=== PATIENT | female | born 2000 | race African-American/Black ===

== ENCOUNTER 2020-05-24 08:31 | Outpatient (CLI) | payer OTHER ==
[~2020-05-24] VITALS: Ht 162.6 cm; Wt 108.9 kg
[2020-05-24 08:52] VITALS: BP 122/69
[2020-05-24] MEDS ORDERED: MULTTAB20 PO (08:59)
[2020-05-24] MEDS ORDERED: GNP250TA9 PO (09:01)
[2020-05-24] MEDS ORDERED: ACET-907 PO (09:01)
[2020-05-24] MEDS ORDERED: COLA100C5 PO (09:01)
[2020-05-24] MEDS ORDERED: SILVER NITRATE APPLICATOR TOP ONE (09:30)
--- NOTE | 2020-05-24 09:41 | IPNPDOC ---
Obstetrical Progress Note Date of Service May 24, 2020 Subjective 21 yo G1 @ 31 +0 by LMP who presents with vaginal bleeding after intercourse this morning. she also notes supropupic pain. reports after they had intercourse she noted some blood on the sheets and the had blood on himself. she reports her US wa normal without previa. baby is moving as usual and she denies any LOF or Contractions. she denies any other concerns. Assessment Heart Rate (FHR): 150 Variability: Moderate Accelerations: Positive Heart Rate Tracing: Other (appropriate for gestational age) Tocometer Contractions: No Sterile Vaginal Examination Dilation: None Assessment and Plan Status: Reassuring (21 yo G1 @ 31 +0 by LMP who presents with vaginal bleeding after intercourse this morning found to have ectropion. oozing noted from te ectropion bed and hemostasis obtained with pressure. will also obtaina urinalysis, Culture for suprapubic pain and patient has sickle cell trait. given strict return precautions. f/u with JOSE as previously scheduled.) EVITA ROGERS MD May 24, 2020 09:41
== END 2020-05-24 10:14 | disposition home or self-care (01) ==
LOC: M LDO 08:31
PROVIDERS: ATTEND Obstetrics & Gynecology
DX: O26.853 Spotting complicating pregnancy, third trimester (principal); Z3A.31 31 weeks gestation of pregnancy
CPT/HCPCS: 59025; 81001; G0378; G0463

== ENCOUNTER 2020-07-05 23:08 | Outpatient (CLI) | payer OTHER ==
[~2020-07-05] VITALS: Ht 162.6 cm; Wt 114.3 kg
[~2020-07-05 23:08] MED LIST: ACET-907 PO; COLA100C5 PO; GNP250TA9 PO; MULTTAB20 PO
[2020-07-05 23:38] VITALS: BP 129/58
[2020-07-06 00:20] VITALS: BP 131/73
--- NOTE | 2020-07-06 00:41 | IPNPDOC ---
Text Note Date of Service The patient was seen on 07/06/20. NOTE 20 yo LMP 10/20/19 EDC 07/26/2020 AT 36.3 WEEKS HAS ISSUES OF PELVIC PRESSURE NO VAGINAL BLEEDING NO LOSS OF FLUID. UTERINE IRRITABILITY AND GOOD MOVEMENT. RISK FACTORS LANGUAGE BARRIER OBESITY SICKLE CELL TRAIT PHYSICAL EXAM NO ACUTE DISTRESS. UPON STANDING SUPRAPUBIC PRESSURE WALKING DIFFICULT BUT NO MOBILITY ISSUES SF HEIGHT 38 CM, 4 QUADRANT BOWEL SOUNDS VERTEX PELVIC EXAM CERVIX POSTERIOR SOFT 1-2 CM -3 STATION NO BLOOD NO DISCHARGE. NST CATEGORY 1 MODERATE VARIABILITY BASELINE NORMAL, ACCELERATIONS NOTED NO DECELERATIONS . PLAN OF CARE REVIEWED PRECAUTIONS MOBILITY ISSUE POSITIONAL ISSUE NOT IN ACTIVE LABOR . PLANNED KEEP FT DRUM APPOINTMENT RTC PRN . 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 DISCHARGED UNDELIVERED . URINE 1025 PH 6 TRACE PROTEIN VS,Fishbone, I+O VS, Fishbone, I+O Vital Signs Date Time Temp Pulse Resp B/P (MAP) Pulse Ox O2 Delivery O2 Flow Rate FiO2 07/06/20 00:21 97.6 07/06/20 00:20 93 18 131/73 (92) Room Air Trav Camarena MD Jul 06, 2020 00:41
== END 2020-07-06 00:29 | disposition home or self-care (01) ==
LOC: M LDO 23:08
PROVIDERS: ATTEND Obstetrics & Gynecology
DX: O26.893 Other specified pregnancy related conditions, third trimester (principal); R10.2 Pelvic and perineal pain; Z3A.36 36 weeks gestation of pregnancy
CPT/HCPCS: 59025; G0378; G0463

== ENCOUNTER 2020-07-26 23:40 | Inpatient (IN) | payer OTHER ==
[~2020-07-26] VITALS: Ht 162.6 cm; Wt 114.5 kg
[2020-07-26 23:47] VITALS: BP 129/85
[2020-07-27] VITALS (36 sets, daily range): BP systolic 105–172; BP diastolic 58–86
[2020-07-27 00:19] LABS: HEMATOCRIT 42.5 % (36.0-47.0); HEMOGLOBIN 14.1 g/dl (12.0-15.5); MEAN CORPUSCULAR HEMOGLOBIN 27.8 pg (27.0-33.0); MEAN CORPUSCULAR HGB CONC 33.2 g/dl (32.0-36.5); MEAN CORPUSCULAR VOLUME 83.7 fl (80.0-96.0); PLATELET COUNT, AUTOMATED 227 10^3/uL (150-450); RED BLOOD COUNT 5.08 10^6/uL (4.00-5.40); WHITE BLOOD COUNT 9.8 10^3/uL (4.0-10.0)
[2020-07-27] MEDS ORDERED: FENTANYL 2MCG/ML ROPIVACAINE 0.2% IN 0.9% NACL 100ML IVBAG As Ordered ONE (00:40)
[2020-07-27] MEDS ORDERED: OXYTOCIN 30 UNITS IN 0.9% NaCl 500ML IV BAG (J2590) As Ordered ONE (00:53)
--- NOTE | 2020-07-27 00:57 | HPEPDOC ---
Obstetrical History & Physical General Date of Admission Jul 26, 2020 at 23:52 History of Present Illness 20yo at 40+1wks presenting for c/o worsening ctx's that have progressed to now less than 5 minutes apart. Denies VB, LOF, DFM. 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: No pertinent history Past Medical History Medical History Obesity Sickle-cell trait Surgical History: Denies/None Family History Significant Family History: No pertinent family hx Social History Marital Status: Family situation: Spouse/partner home Psychosocial History: No pertinent psych hx * Smoker: non-smoker Alcohol: Denies Drugs: denies Abuse Violence Screening Have you been hit/kicked/slapp: No Have you been sexually assault: No Imunizations Tdap status: current ([id number]) Influenza Status: declined Allergies Coded Allergies: No Known Allergies (Unverified , 05/24/20) Medications Scheduled No122/Iron/Folic Acid ( Multi Tablet) 1 Each Tablet, 1 TAB PO DAILY Physical Examination Physical Examination GENERAL: Alert and oriented times three. ABDOMEN: Gravid and non-tender to touch. FETUS: Is vertex (VTX) by sterile vaginal examination (SVE), fetus is vertex (VTX) by Darrian. CARDS: well-perfused RESP: no exaggerated respiratory effort appreciated, no cough EXTREMITIES: No edema. Vital Signs/I&O Vital Signs Date Time Temp Pulse Resp B/P (MAP) Pulse Ox O2 Delivery O2 Flow Rate FiO2 07/26/20 23:47 85 129/85 (100) Laboratory Data 24H LABS Laboratory Tests 2 07/27/20 00:02: Nucleated Red Blood Cells % (auto) 0.0 CBC/BMP Laboratory Tests 07/27/20 00:02 Urine Culture: Contaminated Pertinent Laboratoy Data Blood Type: O+ RBC Antibody Screen: Negative HIV: Negative Hepatitis B: Negative Rapid Plasma Reagin: Nonreactive Rubella: Immune Varicella: Immune Chlamydia/Gonorrhea: Negative Group B Streptococcus: Unknown Quad Screen Test: Negative Cystic Fibrosis: Negative Glucose Tolerance Test: 155 (3hr normal) Anatomy Ultrasound Ultrasound Date: Mar 12, 2020 Placenta Location: Anterior Normal Anatomy: Yes Vaginal Examination Dilation: 5 cm Effacement: 80% Station: -1 Cervical Consistency: Soft Cervical Position: Middle Presentation: Cephalic presentation Assessment Heart Rate (FHR): 130 Variability: Moderate Accelerations: Positive Decelerations: None Tocometer Contractions: Yes Frequency: every 2-5 min. Multi-drug resistant Organism: No history of MDRO Assessment/Plan Assessment Lucila is a 20yo at 40+1wks presenting for c/o ctx's and found to be in active labor. GBS culture contaminated with proteus and listed as unknown in chart. Normotensive, afebrile. FHRT cat I. SVE 5/80/-1. Membranes intact. Plan Admit and orient. 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 Diet: clears as tolerated Group B Streptococcus (GBS) unknown due to contamination. Labs and intravenous (IV) per unit protocol. Patient may have epidural if desired Continuous external monitoring, consider internal monitors if clinically indicated AROM for augmentation of labor once patient receives epidural, consider pitocin if slowed progress Lactated Ringers (LR): Bolus 1000mL, then at 125 mL/hr. Anticipate normal spontaneous delivery (). C-S as appropriate. RIGOBERTO CHACON DO Jul 27, 2020 00:57
[2020-07-27] MEDS ORDERED: NALOXONE INJ 0.4MG/1ML VIAL (J2310 PER 1MG) IV PRN (02:30)
[2020-07-27] MEDS ORDERED: ONDANSETRON 4MG/2ML VIAL IV PRN (02:30)
[2020-07-27] MEDS ORDERED: REFRIGERATOR IV KEYS XX PRN (02:30)
[2020-07-27] MEDS ORDERED: EPIDURAL/PCA KEYS XX PRN (02:30)
[2020-07-27] MEDS ORDERED: FENTANYL/ROPIVACAINE/NACL BAG 100 ML EPIDURAL SCH (02:30)
[2020-07-27] MEDS ORDERED: LACTATED RINGER'S 1000 ML IV PRN (02:30)
[2020-07-27] MEDS ORDERED: diphenhydrAMINE 50MG/ML VIAL (J1200) IV PRN (02:30)
[2020-07-27] MEDS ORDERED: ePHEDrine SULFATE 25 MG/5 ML(5MG/ML) SYRINGE IV PRN (02:30)
[2020-07-27] MEDS ORDERED: EPIDURAL COMMENT XX SCH (02:30)
--- NOTE | 2020-07-27 06:29 | DNPDOC ---
[facility] Delivery Note Delivery Note DATE OF DELIVERY: 07/27/2020 PREDELIVERY DIAGNOSIS: 40+1/7 weeks' gestation and labor. POST DELIVERY DIAGNOSIS: Delivered. PROCEDURE: Spontaneous vaginal delivery RADIOLOGY SPECIAL PROCEDURE TECH: Dr. Rigoberto Chacon ANESTHESIA: Epidural ESTIMATED BLOOD LOSS: 250mL. FINDINGS: 5 pound 13 ounce 2650g female , Score 8/9, no nuchal cord. Nuchal left arm noted. Terminal meconium on delivery field. DELIVERY SUMMARY: Lucila progressed to c/c/+2 and began pushing with excellent pushing effort. Cat II FHR tracing with variable and occassionally prolonged decelerations nadiring to the 90s. Pushed every other push in right lateral position with improvement in FHR tracing. With excellent maternal effort, spontaneous vaginal delivery of a viable, term female infant. Presentation was OA with restitution to LOT with right anterior shoulder. Left nuchal arm noted with left hand anterior position. Anterior shoulder and body delivered without difficulty. No nuchal cord. Terminal meconium noted on delivery field. with spontaneous cry on delivery field therefore placed on maternal abdomen with care transferred to Singer Team. Pitocin IV bolus initiated upon delivery of . After 5 minutes of delayed cord clamping, three vessel cord clamped x2 and cut by FOB. Third stage spontaneous with intact placenta. Fundal massage revealed firm uterine tone and hemostasis. Small 1st degree perineal laceration appreciated that was repaired using 2-0 vicryl in a running, non-locking fashion with good approximation of tissue in a series of 3 sutures. EBL 250ml. Mother and stable and bonding upon my leaving the room. RIGOBERTO CHACON DO Jul 27, 2020 06:29
[2020-07-28 06:00] VITALS: BP 129/71
--- NOTE | 2020-07-28 06:25 | IPNPDOC ---
Progress Note Date of Service: Jul 28, 2020 Day#: 1 Progress Note SUBJECT: Lucila is a 20-year-old 1 now Para 1 status post uncomplicated spontaneous vaginal delivery of 5 pound 13 ounce 2650g female infant, Score 8/9, doing well day # 1. She has been ambulating, voiding spontaneously without issue and tolerating regular diet. Breast feeding without issue. Reports lochia is minimal. Patient is ambulating well. OBJECTIVE: VITAL SIGNS: Within normal limits, afebrile. Alert and oriented times three. normal work of breathing Heart rate: Regular rate and rhythm Abdomen: Fundus firm at U-2. ASSESSMENT: Lucila is a 20-year-old 1 now Para 1 status post uncomplicated spontaneous vaginal delivery of 5 pound 13 ounce 2650g female , Score 8/9, doing well day # 1.. Vitals within normal limits, afebrile, hemodynamically stable with no evidence of infection. PLAN: 1. Discharge to home tomorrow. 2. Tylenol and Motrin for pain. 3. Encourage breast feeding and ambulation. 4. nexplanon for contraception for now 5. Routine PP visit in 6 weeks in clinic. 6. Discussed return precautions at length. VS, I&O, 24H, Fishbone Vital Signs/I&O Vital Signs Date Time Temp Pulse Resp B/P (MAP) Pulse Ox O2 Delivery O2 Flow Rate FiO2 07/28/20 06:00 97.8 89 16 129/71 (90) 100 Room Air I&O- Last 24 Hours up to 6 AM 07/28/20 06:00 Intake Total 720 ml Output Total 650 ml Balance 70 ml Laboratory Data 24H LABS Laboratory Tests 2 07/27/20 07:17: Serology Scanned Report Hepatitis B Testing EVITA ROGERS MD Jul 28, 2020 06:18
[2020-07-28 18:00] VITALS: BP 139/64
[2020-07-29 06:00] VITALS: BP 144/83
--- NOTE | 2020-07-29 07:06 | IPNPDOC ---
Progress Note Date of Service: Jul 29, 2020 Day#: 2 Progress Note SUBJECT: 20-year-old 1 now Para 1 status post uncomplicated spontaneous vaginal delivery at 40.1 weeks' of a female 5 pounds 13 ounces 2650 grams) with post vaginal laceration and repair, doing well day # 2 . She has been ambulating, voiding spontaneously without issue and tolerating regular diet. Breast feeding without issue. Reports lochia is [like a normal period]. Patient is ambulating well. [Reports some cramping with . Denies any pain. Voiding and stooling without difficulty]. OBJECTIVE: VITAL SIGNS: Within normal limits, afebrile. Alert and oriented times three. Breath sounds clear to auscultation. Heart rate: Regular rate and rhythm, no murmurs, rubs or gallops. Abdomen: Fundus firm at U-2. Soft, NTTP. [Minimal] lochia. ASSESSMENT: 20 -year-old 1 now Para 1 status post uncomplicated spontaneous vaginal delivery after presenting in active labor with spontaneous rupture of membranes (SROM), delivered at 40.1 weeks', doing well on day 2. Vitals within normal limits, afebrile, hemodynamically stable with no evidence of infection. PLAN: 1. Discharge to home today. 2. Tylenol and Motrin for pain. 3. Encourage breast feeding and ambulation. 4. review BC at 6 week pp visit 5. Routine PP visit in 6 weeks in clinic. 6. Discussed return precautions at length. medication at [place] discussed with final finisher forging dies phlebitis cystitis mastitis pain management perineal and breast care Item Value Date Time White Blood Count 9.8 10^3/uL 07/27/20 0002 Red Blood Count 5.08 10^6/uL 07/27/20 0002 Hematocrit 42.5 % 07/27/20 0002 Hemoglobin 14.1 g/dl 07/27/20 0002 Mean Corpuscular Volume 83.7 fl 07/27/20 0002 Mean Corpuscular Hemoglobin 27.8 pg 07/27/20 0002 Mean Corpuscular Hemoglobin Concent 33.2 g/dl 07/27/20 0002 Red Cell Distribution Width 14.2 % 07/27/20 0002 Platelet Count 227 10^3/uL 07/27/20 0002 Nucleated Red Blood Cells % (auto) 0.0 % 07/27/20 0002 VS, I&O, 24H, Fishbone Vital Signs/I&O Vital Signs Date Time Temp Pulse Resp B/P (MAP) Pulse Ox O2 Delivery O2 Flow Rate FiO2 07/29/20 06:00 98.1 86 18 144/83 (103) 07/28/20 06:00 100 Room Air Trav Camarena MD Jul 29, 2020 07:04
[2020-07-29] MEDS ORDERED: IBUP-1022 PO (07:08)
[2020-07-29] MEDS ORDERED: DOK1CAP7 PO (07:08)
== END 2020-07-29 10:15 | disposition home or self-care (01) | DRG 807 ==
LOC: M LDO 23:40 → M LDI 23:52 → M OBS 07-27 08:52
PROC: 10E0XZZ Delivery of Products of Conception, External Approach (ICD-10-PCS; principal; 2020-07-27)
PROC: 0HQ9XZZ Repair Perineum Skin, External Approach (ICD-10-PCS; 2020-07-27)
DX: O48.0 Post-term pregnancy (principal); Z37.0 Single live birth; Z3A.40 40 weeks gestation of pregnancy; E66.9 Obesity, unspecified; O99.214 Obesity complicating childbirth; D57.3 Sickle-cell trait; O99.02 Anemia complicating childbirth; O77.0 Labor and delivery complicated by meconium in amniotic fluid; O76 Abnormality in fetal heart rate and rhythm complicating labor and delivery; O69.81X0 Labor and delivery complicated by cord around neck, without compression, not applicable or unspecified; O70.0 First degree perineal laceration during delivery